=== PATIENT | female | born 1945 | race Caucasian/White ===

== ENCOUNTER → 2024-01-03 13:12 | Outpatient (REF) | payer MEDICARE, OTHER, SELFPAY | LOC: WDC 13:12 | PROVIDERS: ATTENDING PHYSICIAN Internal Medicine | DX: Z12.31 Encounter for screening mammogram for malignant neoplasm of breast (principal) | CPT/HCPCS: 77063; 77067 ==

== ENCOUNTER → 2024-09-03 06:26 | Day surgery (SDC) | payer MEDICARE, OTHER, SELFPAY | LOC: GI 06:26 | PROVIDERS: ATTENDING PHYSICIAN Internal Medicine Gastroenterology | DX: Z12.11 Encounter for screening for malignant neoplasm of colon (principal); K57.30 Diverticulosis of large intestine without perforation or abscess without bleeding; K64.0 First degree hemorrhoids; K63.5 Polyp of colon; K55.20 Angiodysplasia of colon without hemorrhage; Z86.0100 Personal history of colon polyps, unspecified; Z80.0 Family history of malignant neoplasm of digestive organs | CPT/HCPCS: 45380; 88305 ==

== ENCOUNTER 2024-12-13 18:02 | Emergency (ER) | payer MEDICARE, OTHER, SELFPAY ==
[2024-12-13 18:15] VITALS: BP 172/82
[2024-12-13] MEDS: NORCO 5/325 1 TABLET PO (21:49)
[2024-12-13 22:20] VITALS: BP 166/88
--- NOTE | 2024-12-13 22:48 | ED.MUSCINJ ---
HPI-Injury
General
Chief Complaint: Fall
Source: patient
Exam Limitations: none
Time Seen by Provider: 12/13/24 20:45
Nursing documentation reviewed up to this point in time: agreed with
History of Present Illness-Injury
Is this injury a work related problem?: No
Is pt an associate of [facility]/[place]?: No
Initial Injury comments:
Tripped on curb and fell. Hit face on pavement. No LOC. Has small laceration to bridge of nose. Abrasion to forehead. COmplains of pain to right knee. Injury occurred this afternoon. Brought to ED by son for eval.
Past History
Past History
ED Past Medical History: None
Social History
Tobacco: Smoker
Alcohol: Occasional
Review of Systems
Review of Systems
Allergies reviewed?: Yes
All Other Systems: ROS reviewed and negative except as documented in HPI and ROS
Constitutional: Reports no symptoms
EENT: Reports no symptoms
Respiratory: Reports no symptoms
Cardiac: Reports no symptoms
ABD/GI: Reports no symptoms
Musculoskeletal: Reports joint pain (Pain to right knee)
Skin: Reports other (laceration to bridge of nose, abrasion to forehead)
Neurological: Reports no symptoms
Psychiatric: Reports no symptoms
Musculoskeletal Injury Exam
Musculoskeletal Injury Exam
Right Knee:
Pain with Movement?: Moderate
Tender to palpation?: Moderate
Soft tissue swelling?: Mild
External deformity and angulation?: None
Joint effusion?: None
Contusion?: Moderate
Hematoma-local bleeding into tissue?: Moderate
Strain- Sprain- Tear (Connective tissue injury)?: Moderate
Crepitus with movement?: No
Joint instability?: No
Malalignment/deformity?: No
Range of motion: Limited
Distal skin color and temperature: normal-warm & good color
Capillary Refill: normal
Normal distal neurovascular exam?: Yes
Skin Exam
Laceration
Nose:
Length in cm: 1
Orientation: L shaped
Type of Laceration: simple
Any active bleeding?: no active bleeding
Distal skin color and temperature: normal-warm & good color
Normal distal neurovascular exam: Yes
Range of motion: full
Abrasion
Forehead:
Description of abrasion: superfical/clean
Phy Exam
General Physical Exam
General Presentation: mild distress
General age: appears stated age
General Skin: warm and dry
General Habitus: normal
General Mental: alert
General Hydration: appears well hydrated
Eye Exam
Eye Exam: PERRL, EOMI and conjunctiva normal
Neurological Exam
Neurological Exam: alert, oriented x3, CN II-XII intact, no motor deficits, no sensory deficits and speech normal
Vinh Coma Scale
Eye Opening: Spontaneous
Verbal Response: Oriented
Motor Response: Obeys Commands
GCS Total Score: 15
Musculoskeletal Exam
Musculoskeletal Exam: neuro vasc intact and other (Pain to right knee)
Skin Exam
Skin Exam: normal color, warm/dry and no rash
Psychiatric Exam
Psychiatric Exam: normal mood/affect
Injury Course
Orders/Labs/Results
Orders:
Orders
12/13/24 18:18
CR Knee- Right 4 Or More View* Urgent
Comment:
Reason For Exam: fall
12/13/24 20:11
CT Head W/o Iv Contrast Urgent
Comment:
Reason For Exam: fall
12/13/24 21:32
Hydrocodone 5/APAP 325 [[place] 5/325] 1 tablet PO NOW STA
Procedures
Laceration Closure
Forehead:
Status of Wound: clean
Description of Wound Edges: sharp
Preparation: cleaned with saline
Revision/Debridement: routine- no revision
Wound exploration: explored to base- no FB
Type of Closure: Dermabond-skin glue
*Radiology
Radiology exam reviewed: radiology read reviewed
*Pulse Oximetry
Patient hypoxic: no
*Critical Care Note
Total Time (30-74mins, 75-104mins- exclusive of procedures): Not Applicable
Update Note
Update Note:
Patient to ED s/p trip and fall. No LOC. AAO x3. CT head neg for bleeding, fracture. Laceration repair to nose with dermabond. Xray of knee reviewed. No fracture. Placed in knee immobilizer. SHe has a walker at home to assist with
ambulation. Will discharge home and she will follow up with orthopedics next week. S/s to return to ED reveiwed and she is agreeable to plan.
ED Attending Note
-
Portions of this chart may have been created with voice recognition software.� Occasional wrong word or��sound alike� substitutions may have occurred due to the inherent limitations of voice recognition software.
Discharge Plan
Departure
Patient Disposition: Home (Routine Discharge)
Date of Disposition: 12/13/24
Time of Disposition: 21:30
Patient with high blood pressure during this ER visit?: No
Condition: Good
Covid-19: Not Applicable
Discharge Problem:
Head injury, Contusion of knee
Instructions: Knee Immobilizer (DC), Head Injury in Adults (DC), Contusion (DC), Preventing falls in adults
Prescriptions:
New
hydrocodone-acetaminophen 5-325 mg tablet
1 tab PO Q4H PRN (Reason: Pain) Qty: 15 0RF
No Action
citalopram 10 MG tablet
10 mg PO DAILY
aspirin,buffd-calcium carb-mag 325 MG tablet
3 tab PO ONCE
amlodipine 5 MG tablet
5 mg PO DAILY
hydrochlorothiazide 25 MG tablet
25 mg PO DAILY
fenofibrate nanocrystallized 145 MG tablet
145 mg PO HS
oxycodone-acetaminophen [Percocet] 1 EACH tablet
1 ea PO Q6HPRN PRN (Reason: pain) Qty: 15 0RF
Referrals:
Ry Quintero MD [Active] - (Follow up if your symptoms do not improve over the next week.)
Lyndsey Branham MD [Family Provider] -
Interventions
Interventions:
*Risk Screen - Suicide Last Done: 12/13/24 18:15
*General Assessment Last Done: 12/13/24 18:15
*Neglect/Abuse Screening Last Done: 12/13/24 18:15
*ED COVID-19 Vaccine History Last Done: 12/13/24 21:13
*Nursing Disposition Last Done: 12/13/24 22:20
ED-Musculoskeletal Assessment Last Done: 12/13/24 21:13
ED- Neurological Assessment Last Done: 12/13/24 21:13
ED-Skin Assessment Last Done: 12/13/24 21:13
Discharge Date and Time
Discharge Date/Time: 12/13/24 22:21
Print Language: MEXICAN
== END 2024-12-13 22:21 | disposition home or self-care (01) ==
LOC: EMR 18:02
PROVIDERS: EMERGENCY PHYSICIAN Emergency Medicine; FAMILY PHYSICIAN Internal Medicine
DX: S09.90XA Unspecified injury of head, initial encounter (principal); S01.21XA Laceration without foreign body of nose, initial encounter; M25.561 Pain in right knee; W19.XXXA Unspecified fall, initial encounter; F17.200 Nicotine dependence, unspecified, uncomplicated
CPT/HCPCS: 99284; 12011; 29505; 70450; 73564

== ENCOUNTER → 2024-12-24 13:51 | Outpatient (REF) | payer MEDICARE, OTHER, SELFPAY | LOC: REG 13:51 | PROVIDERS: ATTENDING PHYSICIAN Student in an Organized Health Care Education/Training Program | DX: M25.561 Pain in right knee (principal) | CPT/HCPCS: 36415; 82565 ==

== ENCOUNTER → 2024-12-27 11:52 | Outpatient (REF) | payer MEDICARE, OTHER, SELFPAY | LOC: RAD 11:52 | PROVIDERS: ATTENDING PHYSICIAN Student in an Organized Health Care Education/Training Program; FAMILY PHYSICIAN Internal Medicine | DX: M25.561 Pain in right knee (principal) | CPT/HCPCS: 73702; Q9967 ==

== ENCOUNTER → 2025-01-28 13:11 | Outpatient (REF) | payer MEDICARE, OTHER, SELFPAY | LOC: WDC 13:11 | PROVIDERS: ATTENDING PHYSICIAN Nurse Practitioner | DX: Z12.31 Encounter for screening mammogram for malignant neoplasm of breast (principal) | CPT/HCPCS: 77063; 77067 ==

== ENCOUNTER → 2025-10-20 07:07 | Outpatient (REF) | payer MEDICARE, OTHER, SELFPAY | LOC: PAVMRI 07:07 | PROVIDERS: ATTENDING PHYSICIAN Hospitalist | DX: M25.561 Pain in right knee (principal) | CPT/HCPCS: 73721 ==